=== PATIENT | female | born 1950 | race Caucasian/White ===

== ENCOUNTER 2020-09-03 11:53 | Emergency (ER) | payer BC ==
[~2020-09-03] VITALS: Ht 154.9 cm; Wt 90.7 kg
[2020-09-03 12:01] VITALS: BP 185/85
--- NOTE | 2020-09-03 12:11 | NUR ---
PT AMBULATED TO BED 11.
--- NOTE | 2020-09-03 12:13 | NUR ---
69 Y/O FEMALE C/O DIZZINESS X1DAY. PT STATES SHE FEELS ROOM IS SPINNING AND LOSS OF VISION LASTING A FEW SECONDS. DENIES FEVER/CHILLS, DENIES N/V/SOB. PT ON O2 AT HOME 3L NC. PT A&O X4,IN SITTING IN BED, BED IN LOWEST POSITION, BRAKES LOCKED, WITH ONE SIDE RAIL UP. PMH: HTN SX: GALLBLADDER AND APPENDIX REMOVED NKA
--- NOTE | 2020-09-03 12:15 | NUR ---
DR. MELGAR AT PT BEDSIDE FOR FURTHER EVALUATION.
[2020-09-03] MEDS: MECLIZINE 25 MG TAB PO ONE (12:19)
[2020-09-03] MEDS: KETOROLAC 60 MG/2 ML VIAL IM ONE (12:21)
--- NOTE | 2020-09-03 12:21 | NUR ---
PT AMBULATED TO RESTROOM FOR URINE SAMPLE.
--- NOTE | 2020-09-03 12:52 | NUR ---
PT SITTING IN BED. STATES SHE IS FEELING BETTER AND IS NO LONGER DIZZY. WILL CONTINUE TO MONITOR
[2020-09-03 13:05] VITALS: BP 185/85
--- NOTE | 2020-09-03 13:05 | NUR ---
Patient discharged with v/s stable. Written and verbal after care instructions given and explained. Patient alert, oriented and verbalized understanding of instructions. Ambulatory with steady gait. All questions addressed prior to discharge. ID band removed. Patient advised to follow up with PMD. Rx of Motrin 800 mg PO TID and Meclizine Hydrocholride 25 mg tab PO q8 hrs given. Patient educated on indication of medication including possible reaction and side effects. Opportunity to ask questions provided and answered.
== END 2020-09-03 13:05 | disposition home or self-care (01) ==
LOC: MED 11:53
DX: H81.10 Benign paroxysmal vertigo, unspecified ear (principal); I10 Essential (primary) hypertension; E11.9 Type 2 diabetes mellitus without complications
CPT/HCPCS: 81002; 96372; 99283; J1885; J8597